=== PATIENT | male | born 1995 | race Caucasian/White ===

== ENCOUNTER 2017-04-05 22:19 | Emergency (ER) | payer OTHER ==
[~2017-04-05] VITALS: Ht 198.1 cm; Wt 83.5 kg
[~2017-04-05 22:19] MED LIST: LEVO50TA4 PO; PROT40TA PO
[2017-04-05 22:23] VITALS: BP 155/88; PULSE 69; RESP 16; TEMP 97.9
[2017-04-05] MEDS ORDERED: ZANT150T2 PO (22:47)
--- NOTE | 2017-04-05 22:47 | PD ---
HPI Chief Complaint: Foreign Body Time Seen by Provider: 22:42 Travel History International Travel<30 days: No Contact w/Intl Traveler<30days: No Traveled to known affect area: No History of Present Illness HPI 21-year-old male says he is eating pizza earlier before arrival. He choked on the pizza. Since then he swallows he feels like there may be a blockage.. He has been able to have a lot of trouble swallowing. He gets stuck occasionally. He has had endoscopy. He does have an uncle requires periodic endoscopy and dilatation of his esophagus ON LICENSE OF [facility] Past Medical History Diminished Hearing: No Immunizations Current: Yes Social History Alcohol Use: No Tobacco Use: No Substance Use: No Allergies-Medications (Allergen,Severity, Reaction): Coded Allergies: penicillin G (Unverified Allergy, Intermediate, Body covered in Hives, ) Reported Meds & Prescriptions Reported Meds & Active Scripts Active Protonix (Pantoprazole Sodium) 40 Mg Tab 40 Mg PO DAILY Use only 1 week at a time. Levothyroxine 50 mcg (Levothyroxine Sodium) 50 Mcg Tab 50 Mcg PO DAILY Review of Systems General / Constitutional: No: Fever, Chills Eyes: No: Diploplia, Blurred Vision HENT: No: Headaches, Vertigo Cardiovascular: No: Chest Pain or Discomfort, Palpitations Respiratory: No: Cough, Shortness of Breath Gastrointestinal: Positive: Dysphagia Genitourinary: No: Urgency, Frequency Skin: No Rash, No Itching Psychiatric: No: Anxiety Physical Exam Narrative GENERAL: Well-developed male SKIN: Focused skin assessment warm/dry. HEAD: Atraumatic. Normocephalic. EYES: Pupils equal and round. No scleral icterus. No injection or drainage. ENT: No nasal bleeding or discharge. Mucous membranes pink and moist. NECK: Trachea midline. No JVD. CARDIOVASCULAR: Regular rate and rhythm. No murmur appreciated. RESPIRATORY: No accessory muscle use. Clear to auscultation. Breath sounds equal bilaterally. GASTROINTESTINAL: Abdomen soft, non-tender, nondistended. Hepatic and splenic margins not palpable. MUSCULOSKELETAL: No obvious deformities. No clubbing. No cyanosis. No edema. NEUROLOGICAL: Awake and alert. No obvious cranial nerve deficits. Motor grossly within normal limits. Normal speech. PSYCHIATRIC: Appropriate mood and affect; insight and judgment normal. Data Data Last Documented VS Vital Signs Date Time Temp Pulse Resp B/P (MAP) Pulse Ox O2 Delivery O2 Flow Rate FiO2 04/05/17 22:23 97.9 69 16 155/88 (110) MDM Medical Decision Making Medical Screen Exam Complete: Yes Emergency Medical Condition: Yes Medical Record Reviewed: Yes Differential Diagnosis Differential diagnosis includes foreign body in the esophagus, foreign body sensation secondary to irritation Narrative Course She is able to swallow at this time. He may have foreign body sensation secondary to irritation. He does have ongoing problems with swallowing. I am going to prescribe some Zantac as he may have some GERD. It is possible with a piece of pizza is present but this should not cause a perforation or other problem. I will give the patient Dr. Gresham's phone number to call for follow -up. I think he does need to have endoscopy done at some point Diagnosis Primary Impression: Sensation of foreign body in esophagus Referrals: Mauro Gresham MD Additional Instructions: Call Dr. Gresham if sensation persists Scripts Ranitidine (Zantac) 150 Mg Tab 150 MG PO BID for Reduce Stomach Acid, #60 TAB 0 Refills Prov: Justus Mack MD 04/05/17 Disposition: 01 DISCHARGE HOME Condition: Stable Justus Mack MD Apr 05, 2017 22:47
== END 2017-04-05 23:10 | disposition home or self-care (01) ==
LOC: PHED 22:19
DX: R09.89 Other specified symptoms and signs involving the circulatory and respiratory systems (principal)
CPT/HCPCS: 99282